=== PATIENT | male | born 1965 | race Caucasian/White ===

== ENCOUNTER → 2020-03-17 | Outpatient (CLI) | payer BC ==
--- NOTE | 2020-03-17 13:36 | XR ---
EXAMINATION TYPE: XR chest 2V DATE OF EXAM: 03/17/2020 COMPARISON: NONE HISTORY: Shortness of breath on exertion. TECHNIQUE: Frontal and lateral views of the chest are obtained. FINDINGS: Mild underlying emphysematous change may be present. There is no focal air space opacity, p leural effusion, or pneumothorax seen. The cardiac silhouette size is within normal limits. The os seous structures are intact. IMPRESSION: No acute cardiopulmonary process.
== END | disposition home or self-care (01) ==
LOC: RADXRMAIN 12:59
PROVIDERS: ATTEND Internal Medicine
DX: R06.02 Shortness of breath (principal)
CPT/HCPCS: 71046

== ENCOUNTER → 2020-05-09 | Outpatient (CLI) | payer BC ==
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
== END ==
LOC: SLEEP 13:01
PROVIDERS: ATTEND Internal Medicine Critical Care Medicine
DX: G47.33 Obstructive sleep apnea (adult) (pediatric) (principal); E11.9 Type 2 diabetes mellitus without complications; I10 Essential (primary) hypertension; J44.9 Chronic obstructive pulmonary disease, unspecified; M26.69 Other specified disorders of temporomandibular joint; Z87.891 Personal history of nicotine dependence; Z87.828 Personal history of other (healed) physical injury and trauma; T78.40XA Allergy, unspecified, initial encounter; Z86.69 Personal history of other diseases of the nervous system and sense organs; Z87.39 Personal history of other diseases of the musculoskeletal system and connective tissue
CPT/HCPCS: 99211

== ENCOUNTER → 2020-10-10 | Outpatient (CLI) | payer BC ==
--- NOTE | 2020-10-10 18:48 | PN ---
PROGRESS NOTE This patient was diagnosed having severe obstructive sleep apnea with an AHI of 42. The patient is coming in for a compliancy check. This is 1st evaluation post treatment and is currently on a CPAP pressure of 12 cm of water. He is using a full-face mask medium size Vitera fullface mask. His humidity level is at 6 and his temperature of the tubing is at 81 thru a climate line. He is doing well. He is very happy with his treatment. He is waking up refreshed and alert during the day. No major hypersomnia or sleepiness during the day. He reports marked improvement in sleep quality and his energy level is also improved. I checked his compliancy data over the past 30 days and I noted that the patient is still having some obstructive respiratory events with an AHI of 8.7 while on treatment. His leak is in the order of 18 L/minute. He is averaging around 6.9 hours of CPAP use per night and CPAP use for more than 4 hours is above 90%. His Hague score is down to 5. PHYSICAL EXAMINATION: His BP is 122/80, pulse 81, respirations 16, temperature is 98.2, weight is 193. Saturation 96% on room air. General appearance: Calm comfortable. Head is atraumatic, normocephalic. NECK: Supple. No JVD. No goiter or neck masses. LUNGS: Clear to auscultation. HEART: Heart sounds are regular rate and rhythm. Normal S1, S2. No S3, S4. No murmurs. ABDOMEN: Soft, nontender. No organomegaly. EXTREMITIES: No edema, no cyanosis or clubbing. NEUROLOGIC: Awake and alert. There is no focal neurological deficits. PSYCHIATRIC: Negative for anxiety or depression. IMPRESSION: 1. Severe obstructive sleep apnea, AHI of 42, currently being successfully treated with a CPAP pressure of 12 cm of water. 2. Hypersomnia, recovered. Hague score is down to 5. PLAN: Continue CPAP therapy. We will make some minor modifications. Will eliminate the ramp time, knowing that the patient is very comfortable with his treatment. At the same time, I suggest increasing the pressure up to 30 cm of water to completely eliminate the obstructive respiratory events encountered on his CPAP machine. Encourage weight loss. Avoid alcohol drinking at least 3 hours prior to going to bed. This may be an issue, knowing that on the nights that he drinks alcohol excessively, his respiratory events are higher on his compliancy data. Appropriate education was given. Encourage weight loss. Implement good sleep hygiene measures. See me back in a year's time in followup, earlier if needed. Treatment is successful for now. MMODL / IJN: [id number] /
== END ==
LOC: SLEEP 13:36
PROVIDERS: ATTEND Internal Medicine Critical Care Medicine
DX: G47.33 Obstructive sleep apnea (adult) (pediatric) (principal); Z99.89 Dependence on other enabling machines and devices

== ENCOUNTER → 2021-04-03 | Outpatient (CLI) | payer BC ==
--- NOTE | 2021-04-04 07:12 | XR ---
EXAMINATION TYPE: XR cervical spine comp DATE OF EXAM: 04/03/2021 TECHNIQUE: Frontal, lateral, oblique, and open mouth view of the cervical spine are obtained. HISTORY: M54.2 Neck pain COMPARISON: None FINDINGS: The cervical spine is visualized in its entirety from C1 thru the top of T1 level, it is s traightened in alignment with slight grade 1 anterolisthesis C4 on C5. The pre-vertebral soft tissue appears within normal limits. The C1-C2 articulation is within normal limits on the open mouth view . Vertebral body height are maintained. Mild disc space narrowing with moderate anterior spurring C5- C6 level. Mild to moderate disc space narrowing and spurring C6-C7 level. The oblique images show unc overtebral facet degenerative changes causing some neural foraminal narrowing at left C3-C4 and right C4-C5 levels. Overlying clothing material is present. IMPRESSION: As above.
== END | disposition home or self-care (01) ==
LOC: RADXRMAIN 15:30
PROVIDERS: ATTEND Internal Medicine
DX: M43.12 Spondylolisthesis, cervical region (principal); M47.812 Spondylosis without myelopathy or radiculopathy, cervical region; M50.822 Other cervical disc disorders at C5-C6 level; M25.78 Osteophyte, vertebrae; M99.71 Connective tissue and disc stenosis of intervertebral foramina of cervical region
CPT/HCPCS: 72050

== ENCOUNTER → 2021-07-17 | Outpatient (CLI) | payer BC ==
--- NOTE | 2021-07-17 15:00 | P.PN ---
Subjective Progress Note Date: 07/17/21 this is a very pleasant 55-year-old male patient diagnosed having severe obstructive sleep apnea. The patient had an AHI of 42 and he was last seen in my office back in 10/10/2020. At that time, I did a compliance check on this patient and his she was extremely successful. Today's coming in for a nontender compliance check upon the request of his DME, [facility]. The patient denies having any complaints or issues. He continues to be on CPAP therapy at a pressure of 13 cm of water. He has a ResMed Airsense 10 units which is fully functional. He is also using a Vitera medium-sized fullface mask. He is humidity level is at 8 and his temperature of the tubing is at 84F. Based on the 30 to compliance data collection and this was from 03/17/2021 and 04/15/2021, the patient has demonstrated excellent compliance in the patient's compliancy percentages at 97%. The patient has used the machine more than 4 hours 97% of time and average usage of the machine is 8 hours and 36 minutes. The patient had a leak of 3.1 L per minute. His AHI is down to 3.7 while on treatment. The patient has no specific complaints. He continues to benefit from the treatment. He is waking up refreshed during the day per no major hypersomnia and sleepiness during the day. His weight is off BiPAP. Since his last evaluation. Otherwise, no other complaints. No angina. No palpitation. No chest pain. No heartburn. No sleep walking. No sleep talking. No other reported parasomnias. Objective - Exam he is 123/77 with a pulse of 79 and a respiration of 16 and the patient's [place] score is down to 6. His temperature 96.7F and her oxygenation saturations around 95%. The patient appeared well nourished and normally developed. Vital signs as documented. Head exam is unremarkable. No scleral icterus or corneal arcus noted. Neck is without jugular venous distension, thyromegaly, or carotid bruits. Carotid upstrokes are brisk bilaterally. Lungs are clear to auscultation and percussion. Cardiac exam reveals the PMI to be normally sized and situated. Rhythm is regular. First and second heart sounds normal. No murmurs, rubs or gallops. Abdominal exam reveals normal bowel sounds, no masses, no organomegaly and no aortic enlargement. Extremities are nonedematous and both femoral and pedal pulses are normal.Examination of the skin revealed no evidence of significant rashes, suspicious appearing nevi or other concerning lesions.Neurologically, the patient is awake and alert and the patient does not have any focal neurological deficit. Cranial nerves are essentially intact. Assessment and Plan Plan: severe symptomatic of central sleep apnea with an AHI of 42. The patient continues to be successfully treated with CPAP pressure of 13 cm of water. Hypersomnia, improved with CPAP therapy Snoring, recovered with CPAP therapy Diabetes mellitus, currently on insulin and the patient is currently using Tresiba in combination withmetformin and Actos Hyperlipidemia Hypertension Plan CPAP machine was checked and admission is functional and the patient continues to benefit from the treatment. Keep the CPAP pressure of 13 cm of water Continue same fullface mask- Vitera medium Dropped to humidity level down to 4 Dropped a temperature of the tubing down to 72F optimize sleep hygiene measures Treatment is successful The patient has met compliancy guidelines Appropriate documentation will be sent to [facility] See me back in 1 year
== END ==
LOC: SLEEP 14:31
PROVIDERS: ATTEND Internal Medicine Critical Care Medicine
DX: G47.31 Primary central sleep apnea (principal); Z99.89 Dependence on other enabling machines and devices; E11.9 Type 2 diabetes mellitus without complications; Z79.4 Long term (current) use of insulin; E78.5 Hyperlipidemia, unspecified; I10 Essential (primary) hypertension

== ENCOUNTER → 2022-12-10 | Outpatient (CLI) | payer BC ==
--- NOTE | 2022-12-10 18:26 | PN ---
PROGRESS NOTE SUBJECTIVE: A 57-year-old male patient coming in for routine check regarding obstructive sleep apnea. The patient was diagnosed having severe UNRULY with an AHI of 42 and the patient was being treated with a CPAP pressure of 15 cm of water. He was compliant and since his last evaluation, the patient has lost approximately 40 pounds. He is diabetic and he was started on Ozempic and currently is down by around 40 pounds, weighing around 158 pounds. His blood sugars are under adequate control. The patient is utilizing an insulin pump in addition to Ozempic. As such, his compliance with CPAP machine has also gotten down. I noted that over the past 30 days, the patient has utilized his machine, 01/30 days and the patient has achieved an average of 2.5 hours of CPAP use per night with a leak of 43 L/minute. He has a Simplus full-face mask. The mask fit is not the best as the patient has lost weight and has facial features of change. The patient is wondering if ongoing CPAP therapy is needed. The patient while off treatment has no significant snoring. No major hypersomnia or sleepiness during the day. No palpitations. He has done major dietary changes. He continues to lose weight. No sleepwalking or sleep talking. No heartburn. No other new complaints otherwise for now. His current vitals are as follows, his blood pressure is 110/76 with a pulse of 85, respirations 16, temperature 97.6, saturation 97% on room air, weight is 158. [place] score is at 5. MEDICATIONS: Includes, 1. Metformin 850 mg twice a day. 2. Farxiga 10 mg p.o. daily. 3. Zocor 40 mg p.o. daily. 4. Cymbalta 60 mg p.o. daily. 5. Sildenafil 20 mg as needed. 6. Albuterol HFA as needed basis. 7. Tresiba Flextouch 40 units daily. 8. Ozempic 1 mg q.week. PHYSICAL EXAMINATION: GENERAL APPEARANCE: Calm, comfortable, in no acute distress. HEENT: Head is atraumatic, normocephalic. NECK: Supple. There is no JVD. No goiter or neck masses. LUNGS: Clear to auscultation. HEART: Sounds regular rate and rhythm. Normal S1, S2. No S3 or S4. No murmurs. ABDOMEN: Soft, nontender. No organomegaly. EXTREMITIES: No edema. No cyanosis or clubbing. ASSESSMENT: 1. Obstructive sleep apnea. AHI of 42. The patient has considerable weight loss with use of Ozempic. The patient is coming in for re-evaluation. Compliancy to CPAP therapy has gone down as the patient has lost weight. 2. Chronic hypersomnia, currently inactive and stable. 3. Obesity with significant weight loss in order of 40 pounds with use of Ozempic. 4. Diabetes mellitus, type 2. 5. Hypertension. 6. Hyperlipidemia. PLAN: Keep his CPAP on standby for now. Obtain a home sleep study to reestablish severity of sleep apnea and decide if ongoing treatment is needed. Encourage further weight loss. We will continue to follow. NARCISO / YOONN: [id number] /
== END ==
LOC: 3 N SLEEP 15:56
PROVIDERS: ATTEND Internal Medicine Critical Care Medicine
DX: G47.33 Obstructive sleep apnea (adult) (pediatric) (principal); G47.10 Hypersomnia, unspecified; E66.9 Obesity, unspecified; E11.9 Type 2 diabetes mellitus without complications; I10 Essential (primary) hypertension; E78.5 Hyperlipidemia, unspecified; Z79.84 Long term (current) use of oral hypoglycemic drugs; Z79.899 Other long term (current) drug therapy; Z79.85 Long-term (current) use of injectable non-insulin antidiabetic drugs
CPT/HCPCS: 99212

== ENCOUNTER → 2022-12-24 | Outpatient (CLI) | payer BC | LOC: 3 N SLEEP 16:57 | PROVIDERS: ATTEND Internal Medicine Critical Care Medicine | DX: G47.33 Obstructive sleep apnea (adult) (pediatric) (principal) ==